=== PATIENT | female | born 1950 | race Caucasian/White ===

== ENCOUNTER 2022-07-31 13:54 | Day surgery (SDC) | payer MEDICARE, OTHER, SELFPAY ==
[2022-07-31 15:24] VITALS: BMI 21.7
[2022-07-31 15:33] VITALS: BP 153/92; PULSE 88; RESP 16; TEMP 36.5; O2SAT 198
[2022-07-31] MEDS: LACTATED RINGERS 1,000 ML 42 ML IV (15:40)
--- NOTE | 2022-07-31 15:40 | PM.HP.1 ---
History of Present Illness History of Present Illness Date Patient Seen: 07/31/22 Chief complaint: Colonoscopy Narrative: Family history of colon cancer in her father and personal history of colon polyps with last colonoscopy almost 5 years ago. Need for follow-up colonoscopy [facility] Social History household members: spouse Smoking Status: Never smoker Meds Home Medications and Allergies Home Medications Medication Instructions Recorded Confirmed Type ascorbic acid (vitamin C) 125 mg 125 mg PO DAILY 07/31/22 07/31/22 History chewable tablet (Vitamin C) calcium 600 mg capsule 1,200 mg PO DAILY 07/31/22 07/31/22 History cetirizine 10 mg tablet (Zyrtec) 10 mg PO DAILY 07/31/22 07/31/22 History flaxseed oil 1,000 mg capsule 1,000 mg PO DAILY 07/31/22 07/31/22 History kasciywsxvmk-lrmrktyf-cnhjnk 1 tab PO DAILY 07/31/22 07/31/22 History tablet (Multivitamin 50 Plus tablet) Allergies Allergy/AdvReac Type Severity Reaction Status Date / Time meperidine [From DEMEROL] Allergy Mild WIPES HER Verified 07/31/22 15:12 OUT Exam Vital Signs (past 8 hours): - 07/31/22 15:33 Temperature 97.7 F Pulse Rate 88 Respiratory Rate 16 Blood Pressure 153/92 H Pulse Oximetry 198 H Oxygen Delivery Method Room Air Oxygen Delivery Method Room Air Narrative Exam Narrative: Oropharynx free of lesions Chest clear to auscultation percussion Cardiac exam reveals no S3 or murmur Assessment & Plan Assessment & Plan narrative: Family history of colon cancer and personal history of colon polyps need for follow-up colonoscopy. Risks benefits and alternatives have been explained.
--- NOTE | 2022-07-31 15:41 | PM.OP.COLON ---
Operative Date/Time/Diagnoses Date of procedure: 07/31/22 Pre-op diagnosis: See indication and findings Procedure & Clinicians Study performed: Colonoscopy Indications: Family history of colon cancer and personal history of colon polyps Procedure Notes Procedure in detail: After informed consent was obtained the patient was placed in left lateral decubitus position. The video colonoscope was introduced the rectum and slowly advanced to the cecum. Preparation was good. On slow withdrawal mucosa was carefully examined. The scope was removed. The patient tolerated the procedure well. Blood loss none Complications none Sedation mac Findings 1. Normal colonoscopy to cecum Ms. Maurer should remain on a every 5 year interval for colonoscopy given her family history with a first-degree relative having colon cancer (her father) and her own personal history of polyps.
[2022-07-31 16:43] VITALS: BP 111/65; PULSE 112; RESP 15; TEMP 36.8; O2SAT 99
[2022-07-31 16:49] VITALS: BP 115/70; PULSE 72; RESP 12; O2SAT 99
[2022-07-31 16:53] VITALS: BP 123/96; PULSE 74; RESP 14; O2SAT 99
== END 2022-07-31 17:17 | disposition home or self-care (01) ==
PROVIDERS: Family Provider Family Medicine; PCP Family Medicine; Referring Provider Internal Medicine Gastroenterology; Visit Provider Internal Medicine Gastroenterology
PROC: 0DJD8ZZ Inspection of Lower Intestinal Tract, Via Natural or Artificial Opening Endoscopic (ICD-10-PCS; CPT 45378; principal; 2022-07-31 15:00)
DX: Z12.11 Encounter for screening for malignant neoplasm of colon (principal); Z86.010 Personal history of colon polyps; Z80.0 Family history of malignant neoplasm of digestive organs
CPT/HCPCS: G0105; J2704

== ENCOUNTER → 2023-08-18 10:01 | Outpatient (CLI) | payer MEDICARE, OTHER, SELFPAY ==
--- NOTE | 2023-08-18 | DI.MG.S_ITS ---
UNILATERAL RIGHT DIGITAL DIAGNOSTIC MAMMOGRAM 3D/2D WITH ADDITIONAL VIEWS: 08/18/2023 CLINICAL: Additional evaluation requested from prior study. Comparison is made to exams dated: 07/17/2023 mammogram and 06/11/2022 mammogram - outside facility. The right breast is heterogeneously dense, which may obscure small masses (category c / 51-75% glandular tissue). There are multiple clusters of fine, dystrophic grouped calcifications in the right breast superior lateral quadrant anterior depth. These are not significantly changed compared to 202. No other significant masses or calcifications are seen in the breast. IMPRESSION: PROBABLY BENIGN The multiple clusters of fine dystrophic heterogeneous calcifications in the right breast are probably benign given that they were called stable in 2022. A follow-up right mammogram in 6 months is recommended to demonstrate stability. If earlier films become available for comparison and these calcifications have shown greater than 2 year stability, they can be considered benign. An addendum will be created if these become available. Findings and recommendations were conveyed to the patient at time of exam. Based on the Tyrer Cuzick model (a risk assessment model) the patient's lifetime risk is 9.6% and her 10 year risk is 7.2%. According to the ACR, ACS, and NCCN guidelines, an annual breast MRI exam along with mammogram is recommended if the patient's lifetime risk is 20% or greater. This exam was interpreted at Station ID: [id number]. NOTE: For mammograms, a report in lay terms will be sent to the patient. Approximately 15% of breast malignancies will not be visualized mammographically. In the management of a palpable breast mass, a negative mammogram must not discourage biopsy of a clinically suspicious lesion. Electronically Signed By: Terri nagy/:08/18/2023 10:57:28 letter sent: Followup Recommended ACR BI-RADS Category 3: Probably benign [id number]
== END ==
PROVIDERS: Family Provider Family Medicine; PCP Family Medicine; Referring Provider Student in an Organized Health Care Education/Training Program; Visit Provider Student in an Organized Health Care Education/Training Program
DX: R92.8 Other abnormal and inconclusive findings on diagnostic imaging of breast (principal); R92.1 Mammographic calcification found on diagnostic imaging of breast; R92.331 Mammographic heterogeneous density, right breast
CPT/HCPCS: 76642; 77065; G0279

== ENCOUNTER → 2024-02-18 09:52 | Outpatient (CLI) | payer MEDICARE, OTHER, SELFPAY ==
--- NOTE | 2024-02-18 09:54 | DI.MG.S_ITS ---
UNILATERAL RIGHT DIGITAL DIAGNOSTIC MAMMOGRAM 3D/2D: 02/18/2024 CLINICAL: Patient returns for a 6 month follow up of the right breast. Comparison is made to exams dated: 06/11/2022 mammogram - outside facility, 08/18/2023 mammogram - [facility], and 07/17/2023 mammogram - outside facility. The breasts are heterogeneously dense, which may obscure small masses (category c / 51-75% glandular tissue). There are multiple 3 mm groups of dystrophic and round calcifications in the right breast upper outer quadrant at anterior depth. These are not significantly changed since 08/18/2023. No other significant masses or calcifications are seen in the breast. IMPRESSION: PROBABLY BENIGN Right breast multiple grouped calcifications in the anterior upper outer quadrant, stable since July 2023. Findings are probably benign. Recommend follow-up mammogram in 6 months to demonstrate 1 year stability. Patient will be due for bilateral mammogram at that time. Findings and recommendations were conveyed to the patient during today's evaluation. Based on the Tyrer Cuzick model (a risk assessment model) the patient's lifetime risk is 9.6% and her 10 year risk is 7.2%. According to the ACR, ACS, and NCCN guidelines, an annual breast MRI exam along with mammogram is recommended if the patient's lifetime risk is 20% or greater. This exam was interpreted at Station ID: [id number]. NOTE: For mammograms, a report in lay terms will be sent to the patient. Approximately 15% of breast malignancies will not be visualized mammographically. In the management of a palpable breast mass, a negative mammogram must not discourage biopsy of a clinically suspicious lesion. Electronically Signed By: Yara Arvizu M.D., Ph.D. eb/:02/18/2024 10:57:11 letter sent: Followup Recommended ACR BI-RADS Category 3: Probably Benign
== END ==
PROVIDERS: Family Provider Family Medicine; PCP Family Medicine; Referring Provider Student in an Organized Health Care Education/Training Program; Visit Provider Student in an Organized Health Care Education/Training Program
DX: R92.8 Other abnormal and inconclusive findings on diagnostic imaging of breast (principal); R92.1 Mammographic calcification found on diagnostic imaging of breast
CPT/HCPCS: 77065; G0279

== ENCOUNTER → 2024-09-08 13:20 | Outpatient (CLI) | payer MEDICARE, OTHER, SELFPAY ==
--- NOTE | 2024-09-08 13:23 | DI.MG.S_ITS ---
MM diagnostic mammo BI: 09/08/2024. BI-RADS: 3 CLINICAL: 74-year old female for bilateral diagnostic mammogram that is a follow-up to diagnostic, right, digital, tomosynthesis on 02/18/2024. Tyrer-Cuzick lifetime risk of 6.4%. No personal or first-degree family history of breast cancer. Current reported family history of breast cancer: paternal grandmother and maternal aunt. PRIOR EXAMS 02/18/2024, 08/18/2023, 07/17/23, 06/11/22. MAMMOGRAPHY TECHNIQUE: 2D and 3D (tomosynthesis) digital mammographic views obtained, with additional images as needed for full coverage. Current study was also evaluated with a Computer Aided Detection (CAD) system. DENSITY C. The breasts are heterogeneously dense, which may obscure small masses. MAMMOGRAPHY FINDINGS Right: Upper at 11:30, Anterior depth: There are multiple probably-benign grouped dystrophic calcifications that are unchanged in number. Right: No new suspicious mass, calcification or other finding. Left: No suspicious mass, asymmetry, microcalcification, or other abnormality seen. IMPRESSION: Right (Calcification): Upper at 11:30, Anterior depth * Probably Benign. Left * No evidence of malignancy. RECOMMENDATIONS Right * Six month followup with diagnostic mammography. Left * Annual screening mammography in one year. COMMENTS: Findings and recommendations were conveyed to the patient during today's evaluation. OVERALL ASSESSMENT CATEGORY BI-RADS-3: Probably Benign. ELECTRONICALLY SIGNED: Terri Ruth M.D. on 09/08/2024 at 02:21:26 PM PT Interpreting Station ID: [id number]
== END ==
LOC: MAMMO 13:22
PROVIDERS: Family Provider Family Medicine; PCP Family Medicine; Referring Provider Family Medicine; Visit Provider Family Medicine
DX: R92.8 Other abnormal and inconclusive findings on diagnostic imaging of breast (principal); R92.1 Mammographic calcification found on diagnostic imaging of breast; R92.333 Mammographic heterogeneous density, bilateral breasts; Z80.3 Family history of malignant neoplasm of breast
CPT/HCPCS: 77066; G0279

== ENCOUNTER → 2025-03-29 08:42 | Outpatient (CLI) | payer MEDICARE, OTHER, SELFPAY ==
--- NOTE | 2025-03-29 08:43 | DI.MG.S_ITS ---
MM diagnostic mammo unilat RT: 03/29/2025. BI-RADS: 3 CLINICAL: 74-year old female for right diagnostic mammogram that is a follow-up to diagnostic mammogram on 09/08/2024. Tyrer-Cuzick lifetime risk of 6.4%. No personal or first-degree family history of breast cancer. Current reported family history of breast cancer: paternal grandmother and maternal aunt. PRIOR EXAMS Mammogram(s): 09/08/2024, 02/18/2024, 08/18/2023, 07/17/2023, 06/11/2022. MAMMOGRAPHY TECHNIQUE: 2D and 3D (tomosynthesis) digital mammographic views obtained, with additional images as needed for full coverage. Current study was also evaluated with a Computer Aided Detection (CAD) system. DENSITY Right: C. The breast is heterogeneously dense, which may obscure small masses. MAMMOGRAPHY FINDINGS Right: Upper at 11:30, Anterior depth: Correlating with prior imaging concern there are multiple grouped calcifications that are unchanged in size and appearance. These calcifications are amorphous and coarse in morphology. IMPRESSION: Right (Calcification): Upper at 11:30, Anterior depth * Probably Benign. RECOMMENDATIONS Right: Upper at 11:30, Anterior depth * Six month followup with diagnostic mammography to demonstrate 2 year stability. When the patient returns for short-term unilateral followup, a mammogram for the contralateral breast will also be due. COMMENTS: Findings and recommendations were conveyed to the patient during today's evaluation. OVERALL ASSESSMENT CATEGORY BI-RADS-3: Probably Benign. ELECTRONICALLY SIGNED: eZnia Peña M.D. on 03/29/2025 at 02:50:31 PM PT Interpreting Station ID: [id number]
== END ==
LOC: MAMMO 08:43
PROVIDERS: Family Provider Family Medicine; PCP Family Medicine; Referring Provider Family Medicine; Visit Provider Family Medicine
DX: R92.8 Other abnormal and inconclusive findings on diagnostic imaging of breast (principal); R92.1 Mammographic calcification found on diagnostic imaging of breast; R92.331 Mammographic heterogeneous density, right breast; Z80.3 Family history of malignant neoplasm of breast
CPT/HCPCS: 77065; G0279